=== PATIENT | female | born 1965 | race African-American/Black ===

== ENCOUNTER → 2017-02-17 | Outpatient (CLI) | payer BC | LOC: RAD 07:42 | PROVIDERS: ATTEND Internal Medicine Gastroenterology | DX: R19.5 Other fecal abnormalities (principal); K44.9 Diaphragmatic hernia without obstruction or gangrene; K21.9 Gastro-esophageal reflux disease without esophagitis | CPT/HCPCS: 74247 ==

== ENCOUNTER → 2017-05-06 | Outpatient (CLI) | payer BC, OTHER ==
--- NOTE | 2017-05-06 09:42 | RADIOLOGY REPORT (SQ) ---
EXAM DESCRIPTION: U/S ABDOMEN LIMITED W/O DOP COMPLETED DATE/TIME: 05/06/2017 8:25 am REASON FOR STUDY: ABD PAIN R10.9 UNSPECIFIED ABDOMINAL PAIN COMPARISON: None. TECHNIQUE: Dynamic and static grayscale images acquired of the right upper quadrant and recorded on PACS. Additional selected color Doppler and spectral images recorded. LIMITATIONS: Study limited due to acoustical interference from fat or from air in the bowel. FINDINGS: PANCREAS: Parts or all of the pancreas poorly seen secondary to acoustical interference fr om fat or from air in the bowel. LIVER: Echotexture is coarse with increased echogenicity consistent with fatty infiltration. No mass es. LIVER VASCULATURE: Normal directional flow of the main portal vein and hepatic veins. GALLBLADDER: No stones. Normal wall thickness. No pericholecystic fluid. ULTRASOUND-DETECTED NOONAN'S SIGN: Negative. INTRAHEPATIC DUCTS AND COMMON DUCT: CBD and intrahepatic ducts normal caliber. No filling defects. INFERIOR VENA CAVA: Normal flow. AORTA: No aneurysm. RIGHT KIDNEY: Normal size. Normal echogenicity. No solid or suspicious masses. No hydronephrosis. No calcifications. PERITONEAL CAVITY AND RIGHT PLEURAL SPACE: No ascites or effusions. OTHER: No other significant finding. IMPRESSION: FATTY LIVER. PANCREAS PARTIALLY OR COMPLETELY OBSCURED. OTHERWISE NORMAL RIGHT UPPER SOL DRANT ULTRASOUND. TECHNICAL DOCUMENTATION: JOB ID: [id number] [employer]- All Rights Reserved
[2017-05-07 08:16] LABS: VITAMIN D 25-HYDROXY 33.7 ng/mL (30.0-100.0)
== END ==
LOC: RAD 07:34
PROVIDERS: ATTEND Specialist
DX: R10.9 Unspecified abdominal pain (principal); E66.01 Morbid (severe) obesity due to excess calories; R53.83 Other fatigue; E55.9 Vitamin D deficiency, unspecified
CPT/HCPCS: 36415; 76705; 82306; 83036; 83970

== ENCOUNTER → 2017-11-08 | Outpatient (CLI) | payer BC, OTHER ==
[2017-11-08 12:06] LABS: INTERNATIONAL RATION (INR) 1.27; PROTHROMBIN TIME 16.7 SEC (11.4-15.4)
== END ==
LOC: OD 11:05
PROVIDERS: ATTEND Physician Assistant Surgical
DX: I82.409 Acute embolism and thrombosis of unspecified deep veins of unspecified lower extremity (principal)
CPT/HCPCS: 36415; 85610

== ENCOUNTER → 2017-11-10 | Outpatient (CLI) | payer BC, OTHER ==
[2017-11-10 10:23] LABS: INTERNATIONAL RATION (INR) 1.37; PROTHROMBIN TIME 17.7 SEC (11.4-15.4)
== END ==
LOC: OD 09:11
PROVIDERS: ATTEND Specialist
DX: D68.318 Other hemorrhagic disorder due to intrinsic circulating anticoagulants, antibodies, or inhibitors (principal)
CPT/HCPCS: 36415; 85610

== ENCOUNTER → 2017-11-11 | Outpatient (CLI) | payer BC, OTHER ==
[2017-11-11 10:31] LABS: INTERNATIONAL RATION (INR) 1.47; PROTHROMBIN TIME 18.7 SEC (11.4-15.4)
== END ==
LOC: OD 09:40
PROVIDERS: ATTEND Specialist
DX: D68.318 Other hemorrhagic disorder due to intrinsic circulating anticoagulants, antibodies, or inhibitors (principal)
CPT/HCPCS: 36415; 85610

== ENCOUNTER → 2017-11-12 | Outpatient (CLI) | payer BC, OTHER ==
[2017-11-12 12:20] LABS: INTERNATIONAL RATION (INR) 1.72; PROTHROMBIN TIME 21.2 SEC (11.4-15.4)
== END ==
LOC: OD 10:59
PROVIDERS: ATTEND Specialist
DX: D68.318 Other hemorrhagic disorder due to intrinsic circulating anticoagulants, antibodies, or inhibitors (principal)
CPT/HCPCS: 36415; 85610

== ENCOUNTER → 2017-11-15 | Outpatient (CLI) | payer BC, OTHER ==
[2017-11-15 12:24] LABS: PROTHROMBIN TIME 23.8 SEC (11.4-15.4)
== END ==
LOC: OD 11:39
PROVIDERS: ATTEND Specialist
DX: D68.318 Other hemorrhagic disorder due to intrinsic circulating anticoagulants, antibodies, or inhibitors (principal)
CPT/HCPCS: 36415; 85610

== ENCOUNTER → 2017-11-17 | Outpatient (CLI) | payer BC, OTHER ==
[2017-11-17 10:15] LABS: INTERNATIONAL RATION (INR) 2.28; PROTHROMBIN TIME 26.3 SEC (11.4-15.4)
== END ==
LOC: OD 09:16
PROVIDERS: ATTEND Specialist
DX: D68.318 Other hemorrhagic disorder due to intrinsic circulating anticoagulants, antibodies, or inhibitors (principal)
CPT/HCPCS: 36415; 85610

== ENCOUNTER → 2017-11-19 | Outpatient (CLI) | payer BC ==
[2017-11-19 11:46] LABS: INTERNATIONAL RATION (INR) 2.56; PROTHROMBIN TIME 28.8 SEC (11.4-15.4)
== END ==
LOC: OD 10:56
PROVIDERS: ATTEND Specialist
DX: D68.318 Other hemorrhagic disorder due to intrinsic circulating anticoagulants, antibodies, or inhibitors (principal)
CPT/HCPCS: 36415; 85610

== ENCOUNTER → 2017-11-22 | Outpatient (CLI) | payer BC ==
[2017-11-22 11:13] LABS: INTERNATIONAL RATION (INR) 2.69
[2017-11-23 12:15] LABS: INTERNATIONAL RATION (INR) 2.92; PROTHROMBIN TIME 31.9 SEC (11.4-15.4)
== END ==
LOC: OD 10:29
PROVIDERS: ATTEND Specialist
DX: D68.318 Other hemorrhagic disorder due to intrinsic circulating anticoagulants, antibodies, or inhibitors (principal)
CPT/HCPCS: 36415; 85610

== ENCOUNTER → 2017-11-25 | Outpatient (CLI) | payer BC ==
[2017-11-25 12:18] LABS: INTERNATIONAL RATION (INR) 2.91; PROTHROMBIN TIME 31.8 SEC (11.4-15.4)
== END ==
LOC: OD 11:18
PROVIDERS: ATTEND Specialist
DX: D68.318 Other hemorrhagic disorder due to intrinsic circulating anticoagulants, antibodies, or inhibitors (principal)
CPT/HCPCS: 36415; 85610

== ENCOUNTER → 2017-11-29 | Outpatient (CLI) | payer BC ==
[2017-11-29 10:34] LABS: INTERNATIONAL RATION (INR) 2.64; PROTHROMBIN TIME 29.5 SEC (11.4-15.4)
== END ==
LOC: OD 09:49
PROVIDERS: ATTEND Specialist
DX: D68.318 Other hemorrhagic disorder due to intrinsic circulating anticoagulants, antibodies, or inhibitors (principal)
CPT/HCPCS: 36415; 85610

== ENCOUNTER → 2017-12-02 | Outpatient (CLI) | payer BC ==
[2017-12-02 11:44] LABS: INTERNATIONAL RATION (INR) 1.94; PROTHROMBIN TIME 23.2 SEC (11.4-15.4)
== END ==
LOC: OD 10:27
PROVIDERS: ATTEND Specialist
DX: D68.318 Other hemorrhagic disorder due to intrinsic circulating anticoagulants, antibodies, or inhibitors (principal)
CPT/HCPCS: 36415; 85610

== ENCOUNTER → 2017-12-06 | Outpatient (CLI) | payer BC ==
[2017-12-06 11:57] LABS: INTERNATIONAL RATION (INR) 2.04; PROTHROMBIN TIME 24.2 SEC (11.4-15.4)
== END ==
LOC: OD 11:13
PROVIDERS: ATTEND Specialist
DX: D68.318 Other hemorrhagic disorder due to intrinsic circulating anticoagulants, antibodies, or inhibitors (principal)
CPT/HCPCS: 36415; 85610

== ENCOUNTER 2017-12-07 01:00 | Emergency (ER) | payer BC ==
--- NOTE | 2017-12-07 02:12 | RADIOLOGY REPORT (SQ) ---
EXAM DESCRIPTION: ABDOMEN 2 VIEWS CLINICAL HISTORY: 52 years, Female, abdominal pain, constipation? COMPARISON: None. NUMBER OF VIEWS: 3 FINDINGS: Intestinal gas pattern is within normal limits. No suspicious calcification. Moderate unilateral osteoarthritis of the left hip with axial migration of the left femoral head. IMPRESSION: No acute findings.
[2017-12-07] MEDS ORDERED: MINERAL OIL 30 ML UDCUP PR ONE (02:22)
--- NOTE | 2017-12-07 02:50 | ER Document Report ---
ED General - General Chief Complaint: Constipation/ possible impaction Stated Complaint: POSSIBLE CONSTIPATED Time Seen by Provider: 12/07/17 01:31 Notes: Patient is a 52-year-old female recently status post Nelson-en-Y surgery 6 weeks ago for weight loss who presents with feeling like she is unable to pass a stool ball. Patient reports that she has not had any abdominal pain, vomiting but has had intermittent nausea. She reports that she feels that she has a large, firm stool ball in her rectum but is unable to pass it. This has prompted her come to the emergency department. She notes that she has had similar symptoms in the past but she is usually able to pass the stool after straining. Nothing improves or worsens her symptoms. She has not seen her primary doctor regarding today's concerns. She denies any fever, chest pain, shortness of breath or any alternative concerns that she may have. TRAVEL OUTSIDE OF THE [place] IN LAST 30 DAYS: No - Related Data Allergies/Adverse Reactions: Penicillins Allergy (Verified 12/07/17 01:08) Past Medical History - General Information source: Patient - Social History Smoking Status: Never Smoker Frequency of alcohol use: None Drug Abuse: None Lives with: Alone Family History: Reviewed & Not Pertinent Patient has suicidal ideation: No Patient has homicidal ideation: No Renal/ Medical History: Denies: Hx Peritoneal Dialysis Review of Systems - Review of Systems Notes: Constitutional: Negative for fever. HENT: Negative for sore throat. Eyes: Negative for visual changes. Cardiovascular: Negative for chest pain. Respiratory: Negative for shortness of breath. Gastrointestinal: Negative for abdominal pain, vomiting or diarrhea. Positive for constipation Genitourinary: Negative for dysuria. Musculoskeletal: Negative for back pain. Skin: Negative for rash. Neurological: Negative for headaches, weakness or numbness. 10 point ROS negative except as marked above and in HPI. Physical Exam - Vital signs Vitals: Temp Pulse Resp BP Pulse Ox 98.6 F 129 H 16 126/98 H 99 12/07/17 01:08 12/07/17 01:08 12/07/17 01:08 12/07/17 01:08 12/07/17 01:08 Interpretation: Normal Course - Re-evaluation Re-evalutation: 12/07/17 02:43 Patient presents with feeling that it is difficult for her to have a bowel movement. She denies any vomiting, and has been able to tolerate oral intake without any difficulty. She denies any abdominal pain. KUB without any evidence of obstruction or perforation. Her clinical history does not suggest either of these diagnoses or any other alternative life-threatening intra- abdominal pathology. She has no focal abdominal tenderness on my examination to suggest an acute appendicitis, biliary pathology or acute pancreatitis. I do not see indication for labs or urinalysis at this point. She has been provided an enema here in the emergency room with relief of her symptoms. At this time will discharge with return precautions and follow-up recommendations. Verbal discharge instructions given a the bedside and opportunity for questions given. Medication warnings reviewed. Patient is in agreement with this plan and has verbalized understanding of return precautions and the need for primary care follow-up in the next 24-72 hours. - Vital Signs Vital signs: Temp Pulse Resp BP Pulse Ox 98.6 F 129 H 16 126/98 H 99 12/07/17 01:08 12/07/17 01:08 12/07/17 01:08 12/07/17 01:08 12/07/17 01:08 Discharge - Discharge Clinical Impression: Nausea Constipation Qualifiers: Constipation type: unspecified constipation type Qualified Code(s): K59.00 - Constipation, unspecified Condition: Good Disposition: HOME, SELF-CARE Additional Instructions: Please return for any additional concerns you may have. Specifically please return if you develop abdominal pain, persistent vomiting, fever, or any other symptoms that are worrisome to you.
[2017-12-07 04:27] VITALS: BP 124/81
== END 2017-12-07 04:25 | disposition home or self-care (01) ==
LOC: ER 01:00
DX: K59.00 Constipation, unspecified (principal); R11.0 Nausea; Z98.84 Bariatric surgery status; Z88.0 Allergy status to penicillin
CPT/HCPCS: 99283; 74019; J3490

== ENCOUNTER → 2017-12-10 | Outpatient (CLI) | payer BC ==
[2017-12-10 11:27] LABS: INTERNATIONAL RATION (INR) 2.24
== END ==
LOC: OD 10:43
PROVIDERS: ATTEND Specialist
DX: D68.318 Other hemorrhagic disorder due to intrinsic circulating anticoagulants, antibodies, or inhibitors (principal)
CPT/HCPCS: 36415; 85610

== ENCOUNTER → 2017-12-17 | Outpatient (CLI) | payer BC ==
[2017-12-17 11:48] LABS: INTERNATIONAL RATION (INR) 2.03; PROTHROMBIN TIME 24.1 SEC (11.4-15.4)
== END ==
LOC: OD 10:51
PROVIDERS: ATTEND Specialist
DX: D68.318 Other hemorrhagic disorder due to intrinsic circulating anticoagulants, antibodies, or inhibitors (principal)
CPT/HCPCS: 36415; 85610

== ENCOUNTER → 2017-12-24 | Outpatient (CLI) | payer BC ==
[2017-12-24 10:23] LABS: INTERNATIONAL RATION (INR) 1.57; PROTHROMBIN TIME 19.7 SEC (11.4-15.4)
== END ==
LOC: OD 09:27
PROVIDERS: ATTEND Specialist
DX: D68.318 Other hemorrhagic disorder due to intrinsic circulating anticoagulants, antibodies, or inhibitors (principal)
CPT/HCPCS: 36415; 85610

== ENCOUNTER → 2017-12-27 | Outpatient (CLI) | payer BC ==
[2017-12-27 12:20] LABS: INTERNATIONAL RATION (INR) 1.48; PROTHROMBIN TIME 18.8 SEC (11.4-15.4)
== END ==
LOC: OD 10:52
PROVIDERS: ATTEND Specialist
DX: D68.318 Other hemorrhagic disorder due to intrinsic circulating anticoagulants, antibodies, or inhibitors (principal)
CPT/HCPCS: 36415; 85610

== ENCOUNTER → 2017-12-30 | Outpatient (CLI) | payer BC ==
[2017-12-30 11:37] LABS: INTERNATIONAL RATION (INR) 1.36; PROTHROMBIN TIME 17.7 SEC (11.4-15.4)
== END ==
LOC: OD 10:52
PROVIDERS: ATTEND Specialist
DX: D68.318 Other hemorrhagic disorder due to intrinsic circulating anticoagulants, antibodies, or inhibitors (principal)
CPT/HCPCS: 36415; 85610

== ENCOUNTER → 2018-01-03 | Outpatient (CLI) | payer BC ==
[2018-01-03 12:36] LABS: INTERNATIONAL RATION (INR) 1.64; PROTHROMBIN TIME 20.4 SEC (11.4-15.4)
== END ==
LOC: OD 11:51
PROVIDERS: ATTEND Specialist
DX: D68.318 Other hemorrhagic disorder due to intrinsic circulating anticoagulants, antibodies, or inhibitors (principal)
CPT/HCPCS: 36415; 85610

== ENCOUNTER → 2018-01-06 | Outpatient (CLI) | payer BC ==
[2018-01-06 12:24] LABS: INTERNATIONAL RATION (INR) 1.93; PROTHROMBIN TIME 23.1 SEC (11.4-15.4)
== END ==
LOC: OD 10:51
PROVIDERS: ATTEND Specialist
DX: D68.318 Other hemorrhagic disorder due to intrinsic circulating anticoagulants, antibodies, or inhibitors (principal)
CPT/HCPCS: 36415; 85610

== ENCOUNTER → 2018-01-10 | Outpatient (CLI) | payer BC ==
[2018-01-10 11:57] LABS: INTERNATIONAL RATION (INR) 1.95; PROTHROMBIN TIME 23.3 SEC (11.4-15.4)
== END ==
LOC: OD 11:12
PROVIDERS: ATTEND Specialist
DX: D68.318 Other hemorrhagic disorder due to intrinsic circulating anticoagulants, antibodies, or inhibitors (principal)
CPT/HCPCS: 36415; 85610

== ENCOUNTER → 2018-01-14 | Outpatient (CLI) | payer BC ==
[2018-01-14 10:49] LABS: INTERNATIONAL RATION (INR) 2.25
== END ==
LOC: OD 10:04
PROVIDERS: ATTEND Specialist
DX: D68.318 Other hemorrhagic disorder due to intrinsic circulating anticoagulants, antibodies, or inhibitors (principal)
CPT/HCPCS: 36415; 85610

== ENCOUNTER → 2018-01-18 | Outpatient (CLI) | payer BC ==
[2018-01-18 12:34] LABS: INTERNATIONAL RATION (INR) 1.89; PROTHROMBIN TIME 22.6 SEC (11.4-15.4)
== END ==
LOC: OD 11:29
PROVIDERS: ATTEND Specialist
DX: D68.318 Other hemorrhagic disorder due to intrinsic circulating anticoagulants, antibodies, or inhibitors (principal)
CPT/HCPCS: 36415; 85610

== ENCOUNTER → 2018-01-25 | Outpatient (CLI) | payer BC ==
[2018-01-25 12:52] LABS: INTERNATIONAL RATION (INR) 1.79; PROTHROMBIN TIME 21.7 SEC (11.4-15.4)
== END ==
LOC: OD 12:13
PROVIDERS: ATTEND Specialist
DX: D68.318 Other hemorrhagic disorder due to intrinsic circulating anticoagulants, antibodies, or inhibitors (principal)
CPT/HCPCS: 36415; 85610

== ENCOUNTER → 2018-01-28 | Outpatient (CLI) | payer BC ==
[2018-01-28 12:14] LABS: INTERNATIONAL RATION (INR) 1.91; PROTHROMBIN TIME 22.8 SEC (11.4-15.4)
== END ==
LOC: OD 11:02
PROVIDERS: ATTEND Specialist
DX: D68.318 Other hemorrhagic disorder due to intrinsic circulating anticoagulants, antibodies, or inhibitors (principal)
CPT/HCPCS: 36415; 85610

== ENCOUNTER → 2018-01-31 | Outpatient (CLI) | payer BC ==
[2018-01-31 13:01] LABS: INTERNATIONAL RATION (INR) 2.12; PROTHROMBIN TIME 24.8 SEC (11.4-15.4)
== END ==
LOC: OD 12:10
PROVIDERS: ATTEND Specialist
DX: D68.318 Other hemorrhagic disorder due to intrinsic circulating anticoagulants, antibodies, or inhibitors (principal)
CPT/HCPCS: 36415; 85610

== ENCOUNTER → 2018-02-07 | Outpatient (CLI) | payer BC ==
[2018-02-07 12:40] LABS: INTERNATIONAL RATION (INR) 1.87; PROTHROMBIN TIME 22.4 SEC (11.4-15.4)
== END ==
LOC: OD 11:48
PROVIDERS: ATTEND Specialist
DX: D68.318 Other hemorrhagic disorder due to intrinsic circulating anticoagulants, antibodies, or inhibitors (principal)
CPT/HCPCS: 36415; 85610